=== PATIENT | female | born 1965 | race Caucasian/White ===

== ENCOUNTER 2022-08-25 20:38 | Emergency (ER) | payer OTHER ==
[~2022-08-25] VITALS: Ht 170.2 cm; Wt 83.9 kg
[2022-08-25] MEDS: TETANUS/DIPHTHERIA TOX ADULT 0.5 ML SYR IM ONE (20:55)
[2022-08-25] MEDS: LIDOCAINE HCL 1% LOCAL INJ 20 ML VIAL INJ ONE (22:04)
[2022-08-25] MEDS ORDERED: CEPHALEXIN500 MG PO (22:09)
[2022-08-25] MEDS ORDERED: ULTRAM 50MG50 MG PO (22:09)
[2022-08-25 22:21] VITALS: BP 129/92
[2022-08-25] MEDS: TRAMADOL HCL 50 MG TAB PO ONE (22:21)
[2022-08-25] MEDS ORDERED: TRAMADOL HCL 50 MG TAB ONE (22:24)
[2022-08-25] MEDS ORDERED: BACITRACIN ZINC 0.9GM TP ONE (22:26)
== END 2022-08-25 22:24 | disposition home or self-care (01) ==
LOC: ER 20:42
DX: S01.81XA Laceration without foreign body of other part of head, initial encounter (principal); Z23 Encounter for immunization; W01.198A Fall on same level from slipping, tripping and stumbling with subsequent striking against other object, initial encounter
CPT/HCPCS: 12013; 70450; 72125; 90471; 90714; 99284; J2001